=== PATIENT | female | born 1950 | race Caucasian/White ===

== ENCOUNTER 2017-12-22 22:02 | Emergency (ER) | payer MEDICARE, MEDICAID ==
[~2017-12-22] VITALS: Ht 162.6 cm; Wt 86.7 kg
[~2017-12-22 22:02] MED LIST: CHOL2000 PO; DOXE50CA4 PO; INSU100V36 SQ; LANTUS SUBCUT; RABE20TA18 PO
[2017-12-22] MEDS ORDERED: ipratropium/albuterol 3ml nebule NEB ONE (22:25)
[2017-12-22] MEDS ORDERED: methylPREDNISolone sod succ 125mg/2ml vial IM ONE (22:25)
[2017-12-22] MEDS ORDERED: PRED10TA PO (23:08)
[2017-12-22] MEDS ORDERED: ALBU8HFA PO (23:08)
[2017-12-22] MEDS ORDERED: AZIT-57 PO (23:08)
[2017-12-22 23:27] VITALS: BP 133/87
== END 2017-12-22 23:32 | disposition home or self-care (01) ==
LOC: ER 22:03
DX: J20.9 Acute bronchitis, unspecified (principal); J44.9 Chronic obstructive pulmonary disease, unspecified; K21.9 Gastro-esophageal reflux disease without esophagitis; G89.29 Other chronic pain; E11.9 Type 2 diabetes mellitus without complications; Z87.891 Personal history of nicotine dependence; Z79.4 Long term (current) use of insulin; Z79.899 Other long term (current) drug therapy; Z88.6 Allergy status to analgesic agent; Z88.5 Allergy status to narcotic agent; Z60.2 Problems related to living alone
CPT/HCPCS: 71045; 94640; 94760; 96372; 99283; J2930

== ENCOUNTER 2017-12-26 09:23 | Emergency (ER) | payer MEDICARE, MEDICAID ==
[~2017-12-26] VITALS: Ht 162.6 cm; Wt 190.0 kg
[~2017-12-26 09:23] MED LIST changes: +ALBU8HFA PO; +AZIT-57 PO; +PRED10TA PO
[2017-12-26 11:29] VITALS: BP 122/70
== END 2017-12-26 11:31 | disposition home or self-care (01) ==
LOC: ER 09:24
DX: E11.649 Type 2 diabetes mellitus with hypoglycemia without coma (principal); J44.9 Chronic obstructive pulmonary disease, unspecified; K21.9 Gastro-esophageal reflux disease without esophagitis; G89.29 Other chronic pain; F17.210 Nicotine dependence, cigarettes, uncomplicated; Z98.890 Other specified postprocedural states; Z60.2 Problems related to living alone; Z88.8 Allergy status to other drugs, medicaments and biological substances; Z88.5 Allergy status to narcotic agent; Z79.4 Long term (current) use of insulin; Z79.899 Other long term (current) drug therapy
CPT/HCPCS: 82948; 99283

== ENCOUNTER 2020-08-22 15:43 | Emergency (ER) | payer MEDICARE, MEDICAID ==
[~2020-08-22] VITALS: Ht 162.6 cm; Wt 68.0 kg
[~2020-08-22 15:43] MED LIST changes: -ALBU8HFA PO; -AZIT-57 PO
[2020-08-22 16:13] VITALS: BP 139/51
--- NOTE | 2020-08-22 16:23 | NUR ---
Daughter phone number for ride home. [phone] or [phone]
[2020-08-22] MEDS ORDERED: ondansetron 4mg rapidly disintigrating tab PO ONE (16:45)
[2020-08-22] MEDS ORDERED: HYDROcodone/acetaminophen 5mg/325mg tablet PO ONE (16:45)
--- NOTE | 2020-08-22 16:58 | NUR ---
Pt stats she is not allergic to acetaminophen or hydrocodone. This has been verified with the provider and ok to administer.
[2020-08-22] MEDS ORDERED: BUPIVAcaine 0.5% W/EPI /PF 30ml vial IJ ONE (17:10)
--- NOTE | 2020-08-22 18:01 | NUR ---
angiography technologist at bedside for splint.
[2020-08-22] MEDS ORDERED: ONDA4TAB6 PO (18:13)
[2020-08-22] MEDS ORDERED: HYDR-4383 PO (18:13)
== END 2020-08-22 19:02 | disposition home or self-care (01) ==
LOC: ER 15:44
DX: S52.531A Colles' fracture of right radius, initial encounter for closed fracture (principal); M25.531 Pain in right wrist; J44.9 Chronic obstructive pulmonary disease, unspecified; K21.9 Gastro-esophageal reflux disease without esophagitis; E11.9 Type 2 diabetes mellitus without complications; G89.29 Other chronic pain; Z88.5 Allergy status to narcotic agent; Z88.6 Allergy status to analgesic agent; Z79.4 Long term (current) use of insulin; Z79.899 Other long term (current) drug therapy; X58.XXXA Exposure to other specified factors, initial encounter; Y93.89 Activity, other specified; Y92.89 Other specified places as the place of occurrence of the external cause; Y99.8 Other external cause status
CPT/HCPCS: 25605; 73110; 99284